=== PATIENT | male | born 1980 | race Caucasian/White ===

== ENCOUNTER 2018-05-10 16:50 | Emergency (ER) | payer SELFPAY ==
[~2018-05-10] VITALS: Ht 193 cm; Wt 134.7 kg
[2018-05-10 16:55] VITALS: BP 150/82
[2018-05-10] MEDS ORDERED: THYR15TA PO (17:20)
== END 2018-05-10 17:58 | disposition home or self-care (01) ==
LOC: ED 17:52
DX: L25.9 Unspecified contact dermatitis, unspecified cause (principal); M79.642 Pain in left hand; M79.641 Pain in right hand
CPT/HCPCS: 99281